=== PATIENT | female | born 1990 | race Two or more races ===

== ENCOUNTER 2019-11-05 07:28 | Emergency (ER) | payer BC ==
[~2019-11-05] VITALS: Ht 154.9 cm; Wt 83.5 kg
[2019-11-05 07:38] VITALS: BP 127/85
--- NOTE | 2019-11-05 07:41 | NUR ---
Patient ambulated to bed 12.
--- NOTE | 2019-11-05 07:48 | NUR ---
29 YR OLD AAOX4 PT BIB SELF W/ C/O BILAT LIP SWELLING STARTING YESTERDAY. PT REPORTS SHE IS ALSO NOW FEELING LIKE HER L SIDE OF HER FACE IS GETTING SWOLLEN TOO. PT DENIES EATING/DRINKING OR COMING INTO CONTACT W ANYTHING NEW. PT DENIES SOB OR PAIN HX: NONE RX: NONE
[2019-11-05] MEDS ORDERED: FAMOTIDINE 20 MG TAB PO ONE (07:50)
[2019-11-05] MEDS ORDERED: methylPREDNISolone SS 125 MG in WATER STERILE 2 ML IM ONE (07:50)
[2019-11-05] MEDS ORDERED: methylPREDNISolone SS 125 MG/2 ML VIAL ONE (07:54)
[2019-11-05] MEDS ORDERED: WATER STERILE 10 ML MC ONE (07:54)
[2019-11-05 08:54] VITALS: BP 106/71
--- NOTE | 2019-11-05 08:54 | NUR ---
Patient discharged with v/s stable. Written and verbal after care instructions given and explained. Patient alert, oriented and verbalized understanding of instructions. Ambulatory with steady gait. All questions addressed prior to discharge. ID band removed. Patient advised to follow up with PMD. Rx of prednisone, benadryl, pepcid given. Patient educated on indication of medication including possible reaction and side effects. Opportunity to ask questions provided and answered.
== END 2019-11-05 08:54 | disposition home or self-care (01) ==
LOC: MED 07:28
DX: R22.0 Localized swelling, mass and lump, head (principal); T78.40XA Allergy, unspecified, initial encounter; T78.3XXA Angioneurotic edema, initial encounter; X58.XXXA Exposure to other specified factors, initial encounter
CPT/HCPCS: 96372; 99283; J2930; Q0163

== ENCOUNTER 2022-08-30 19:13 | Emergency (ER) | payer BC ==
[~2022-08-30] VITALS: Ht 154.9 cm; Wt 81.6 kg
[2022-08-30 19:54] VITALS: BP 110/70
--- NOTE | 2022-08-30 20:00 | NUR ---
PT AMBULATES WITH STEADY GAIT TO BED 1
[2022-08-30] MEDS ORDERED: CEPH-588 PO (20:30)
[2022-08-30] MEDS ORDERED: IBUP-2213 PO (20:30)
--- NOTE | 2022-08-30 20:39 | NUR ---
Patient discharged with v/s stable. Written and verbal after care instructions given and explained. Patient alert, oriented and verbalized understanding of instructions. Ambulatory with steady gait. All questions addressed prior to discharge. ID band removed. Patient advised to follow up with PMD. Rx of keflex and motrin given. Patient educated on indication of medication including possible reaction and side effects. Opportunity to ask questions provided and answered.
== END 2022-08-30 20:39 | disposition home or self-care (01) ==
LOC: MED 19:13
DX: M79.621 Pain in right upper arm (principal)
CPT/HCPCS: 99283